=== PATIENT | male | born 1970 | race Caucasian/White ===

== ENCOUNTER 2018-09-27 22:18 | Emergency (ER) | payer SELFPAY, OTHER | END 2018-09-28 01:52 | disposition home or self-care (01) | LOC: FTE 22:18 | DX: T16.2XXA Foreign body in left ear, initial encounter (principal); X58.XXXA Exposure to other specified factors, initial encounter; Y92.9 Unspecified place or not applicable | CPT/HCPCS: 69200; 99282-25 ==